=== PATIENT | female | born 1960 | race Caucasian/White ===

== ENCOUNTER 2023-11-11 14:08 | Emergency (ER) | payer BC, SELFPAY ==
[2023-11-11] VITALS (11 sets, daily range): BP systolic 156–201; BP diastolic 90–113; PULSE 63–74; RESP 10–18; TEMP 37.2; O2SAT 98–100
--- NOTE | ~2023-11-11 | CT_ITS ---
EXAMINATION: CT BRAIN W/O DATE: 11/11/2023 20:00 INDICATION: Headache. Hypertension. TECHNIQUE: Computed tomography (CT) of the head was performed without intravenous contrast. The dose- length product was 605.33 mGy-cm. Automated exposure control and iterative reconstruction technique w ere employed. COMPARISON: No prior studies for comparison. FINDINGS: Normal brain parenchymal volume for age. Normal barros-white differentiation. No acute intrac ranial hemorrhage, infarction, mass or mass effect. No ventriculomegaly or midline shift. Midline sagittal images demonstrate a normal corpus callosum, c raniovertebral junction and sella turcica. Basilar cisterns are patent. Paranasal sinuses and mastoids are pneumatized. No depressed skull fractures. IMPRESSION: 1. No acute intracranial abnormality. Reviewed, dictated and finalized at location A.
--- NOTE | ~2023-11-11 | XR_ITS ---
EXAMINATION: XR chest 2V DATE: 11/11/2023 14:44 INDICATION: Hypertension and chest pain TECHNIQUE: PA and lateral views of the chest were obtained. COMPARISON: None FINDINGS: The lungs are clear with no focal airspace opacities, pulmonary edema, pleural effusion or pneumothor ax. The cardiomediastinal silhouette is normal. Visualized bones and soft tissues are unremarkable. IMPRESSION: 1. No acute cardiopulmonary disease. Reviewed, dictated and finalized at location B.
--- NOTE | 2023-11-11 14:20 | ECG_ITS ---
Measurements Intervals [place] Rate: 67 P: 52 IN: 137 QRS: 15 QRSD: 71 T: 0 QT: 425 QTc: 451 Interpretive Statements SINUS RHYTHM POSSIBLE LEFT ATRIAL ENLARGEMENT CONSIDER INFERIOR INFARCT, AGE INDETERMINATE BORDERLINE ST ABNORMALITY- ANTEROLATERAL LEADS BASELINE WANDER- I, II, AVR, AVL, AVF, V1-V6 ABNORMAL ECG NO PREVIOUS ECG AVAILABLE FOR COMPARISON Electronically Signed On 11-11-2023 14:36:43 CDT by Juan Carlos Jacques D.O.
--- NOTE | 2023-11-11 14:35 | ED.RECABL ---
HPI - Recheck/Abnormal Lab/Rx General Chief Complaint: Recheck/Abnormal Lab/Rx Stated Complaint: htn Time Seen by Provider: 11/11/23 14:12 Source: patient Mode of arrival: ambulatory Limitations: no limitations History of Present Illness HPI narrative: This is a 63 year old female that presents to the ER for elevated blood pressure reading. Reports today she was feeling not right . Reports indigestion, as well as an episode of nausea and vomiting. Also reports left sided mid back pain, worse with breathing. She has been sick with a viral illness. She has been taking Sudafed. She took her blood pressure and it was elevated to 160s systolic. She called her PCP and was told to come to the ER. Denies shortness of breath, abdominal pain or lower extremity edema. Related Data Allergies Allergy/AdvReac Type Severity Reaction Status Date / Time No Known Allergies Allergy Unknown Unverified 10/17/16 08:13 Review of Systems Review of Systems: CONSTITUTIONAL: Denies fever, CARDIOVASCULAR: Reports chest pain. Denies edema. RESPIRATORY: Reports cough. Denies dyspnea GASTROINTESTINAL: Reports nausea, vomiting All systems reviewed & are unremarkable except as noted in HPI and below PMFSH Past Medical History Medical History (Updated 11/11/23 @ 18:34 by Ange Bender PA-C) History of gastroesophageal reflux (GERD) History of hypertension Family History Family History (Updated 09/05/15 @ 16:37 by DOCTOR UNKNOWN) Other Hypertension Social History Social History Smoking status: Never smoker Alcohol intake: current Exam Narrative: GENERAL: Well-appearing, well-nourished, and in no acute distress. HEAD: Normocephalic, atraumatic. EYES: EOMI. ENT: Nares clear, no rhinorrhea or epistaxis. Mucous membranes moist. Oropharynx without tonsillar hypertrophy exudate or other lesions. NECK: Supple. No adenopathy or masses. No JVD CHEST: Clear to auscultation. No respiratory distress. No wheezes rales or rhonchi HEART: Regular rate and rhythm. No murmur heard. Normal peripheral pulses. ABDOMEN: Soft, nontender, nondistended, normal active bowel sounds. EXTREMITIES: Normal range of motion. No edema. SKIN: Warm, dry, no rash. NEURO: No focal deficits. Alert and oriented x3. PSYCH: Normal mood and affect Course Course Emergency Course: Patient updated on workup and agrees with plan of care Vital Signs Vital signs: Vital Signs Temperature 98.9 F 11/11/23 14:13 Pulse Rate 73 11/11/23 14:13 Respiratory Rate 18 11/11/23 14:13 Blood Pressure 201/106 H 11/11/23 14:13 Pulse Oximetry 100 11/11/23 14:13 Oxygen Delivery Room Air 11/11/23 14:13 Temperature 98.9 F 11/11/23 14:13 Pulse Rate 69 11/11/23 16:01 Respiratory Rate 11 L 11/11/23 16:01 Blood Pressure 163/103 H 11/11/23 17:01 Pulse Oximetry 98 11/11/23 17:01 Oxygen Delivery Room Air 11/11/23 14:13 MDM - Recheck/Abnormal Lab/Rx MDM Narrative Medical decision making narrative: Patient presents to the emergency department for elevated blood pressure adult. Reports today she is feeling generally unwell. Reports she has been having some trouble with reflux. She was also reporting some left-sided pleuritic back pain. She is afebrile and nontoxic appearing. Blood pressure elevated on arrival to 200 systolic. This down trended without intervention. Most recent blood pressure 168/100. She is neurologically intact. CBC without concerning findings. Metabolic panel without concerning changes. Lipase is normal. EKG without acute ST changes and her baseline and 3 hour troponin are negative. Chest x-ray without acute cardiopulmonary abnormality. D-dimer is not elevated. Patient was updated on her workup. I attempted to reach her PCP, but was unable to. She was instructed to have close follow-up with her primary doctor for further management of her blood pressure. She was given warnings to return to the ER Differential D
[2023-11-11 14:37] LABS: Basophils Percent Auto 0.5 % (0.2-1.2); Eosinophils Percent Auto 0.1 % (0-4.4); Hematocrit 40.7 % (37.0-47.0); Hemoglobin 13.9 g/dL (12.0-15.0); Immature Granulocyte Absolute 0.03 K/mm3 (0.00-0.031); Immature Granulocyte Percent A 0.4 % (0-0.5); Lymphocytes Absolute Auto 1.87 K/mm3 (0.9-3.2); Mean Corpuscular HGB Conc 34.2 g/dl (32-36); Mean Corpuscular Hemoglobin 30.8 pg (26-34); Mean Corpuscular Volume 90.2 fl (80-100); Mean Platelet Volume 8.7 fl (7.4-10.4); Monocytes Absolute Auto 0.5 K/mm3 (0.1-0.6); Monocytes Percent Auto 6.1 % (2.6-8.5); Neutrophils Absolute Auto 5.1 K/mm3 (1.3-6.7); Neutrophils Percent Auto 67.9 % (45.5-73.1); Platelet Count Result 315 k/mm3 (150-375); Red Blood Count 4.51 M/mm3 (4.2-5.4); Red Cell Distribution Width 12.5 % (11.5-14.5); White Blood Count 7.5 K/mm3 (4.5-10.0)
[2023-11-11] MEDS: FAMOTIDINE 20 MG/2 ML VIAL IV PUSH (14:45)
[2023-11-11] MEDS: ONDANSETRON INJ 4 MG/2 ML VIAL IV PUSH (14:45)
[2023-11-11 14:47] LABS: Alanine Aminotransferase 26 U/L (6-35); Albumin Level 4.6 g/dL (3.5-5.1); Alkaline Phosphatase 115 U/L (38-126); Anion Gap 6 mmol/L (8-16); Aspartate Amino Transferase 41 U/L (14-36); Blood Urea Nitrogen 15 mg/dL (7-17); Calcium 9.6 mg/dL (8.4-10.2); Carbon Dioxide 31 mmol/L (22-30); Chloride 97 mmol/L (98-107); Estimated CRCL calculation 79 ml/min; Estimated Glomerular Filt Rate > 60; Glucose 109 mg/dL (65-110); Potassium 4.3 mmol/L (3.4-5.0); Sodium 134 mmol/L (137-145)
[2023-11-11 14:49] LABS: Partial Thromboplastin Time 26.6 Seconds (22.3-36.8); Prothrombin Time 13.5 Seconds (11.1-14.7)
[2023-11-11 14:52] LABS: D Dimer 0.41 ug/mL (<0.48)
[2023-11-11 14:58] LABS: Troponin I < 0.012 ng/mL (0.000-0.034)
[2023-11-11 15:01] LABS: Lipase 103 U/L (23-300)
--- NOTE | 2023-11-11 17:24 | ECG_ITS ---
Measurements Intervals [place] Rate: 67 P: 53 WI: 144 QRS: 19 QRSD: 80 T: 15 QT: 427 QTc: 454 Interpretive Statements SINUS RHYTHM POSSIBLE LEFT ATRIAL ENLARGEMENT EARLY PRECORDIAL R/S TRANSITION CONSIDER INFERIOR INFARCT, AGE INDETERMINATE NONSPECIFIC ST ABNORMALITY- ANTEROLAT/HIGH LAT LEADS BORDERLINE ECG COMPARED TO ECG 11/11/2023 14:26:10 NO SIGNIFICANT CHANGES Electronically Signed On 11-11-2023 19:49:36 CDT by Juan Carlos Jacques D.O.
[2023-11-11 18:04] LABS: Troponin I < 0.012 ng/mL (0.000-0.034)
[2023-11-11 19:56] LABS: Influenza A QL RT-PCR Negative (Negative); Influenza B QL RT-PCR Negative (Negative); SARS-CoV-2 RNA PCR Negative (Negative)
== END 2023-11-11 21:13 | disposition home or self-care (01) ==
PROVIDERS: Physician Assistant; Emergency Provider Emergency Medicine
DX: I10 Essential (primary) hypertension (principal); K21.9 Gastro-esophageal reflux disease without esophagitis; R94.31 Abnormal electrocardiogram [ECG] [EKG]
CPT/HCPCS: 36415; 70450; 71046; 80053; 83690; 84484; 85025; 85380; 85610; 85730; 87636; 93005; 96374; 96375; 99284; J2405

== ENCOUNTER 2025-04-21 10:54 | Emergency (ER) | payer BC, SELFPAY ==
--- NOTE | ~2025-04-21 | XR_ITS ---
EXAMINATION: XR chest 2V 04/21/2025 11:47 INDICATION: Cough congestion for 2 weeks. TECHNIQUE:Frontal and lateral images of the chest were obtained. COMPARISON: 11/11/2023 FINDINGS: The lungs are clear. The cardiomediastinal silhouette is within normal limits. There are no pleural effusions. There is no pneumothorax suspected. IMPRESSION: 1: NO ACUTE CARDIOPULMONARY DISEASE. Reviewed, dictated and finalized at location Q.
[2025-04-21 11:01] VITALS: BP 128/84; PULSE 88; RESP 18; TEMP 36.2; O2SAT 99
--- NOTE | 2025-04-21 11:02 | ED_ITS ---
HPI - URI/Sore Throat General Chief Complaint: Upper Respiratory Infection Stated Complaint: Congestion/Bodyaches/Fever Time Seen by Provider: 04/21/25 11:06 Source: patient Mode of arrival: ambulatory Limitations: no limitations History of Present Illness HPI Narrative: 64 y/o female presented for c/o cough, chest congestion, nasal congestion, and fatigue. Onset 2 weeks. Says symptoms worsened yesterday. Endorses occasional wheezing and sob with exertion. Denies n/v/d/f/c. Related Data Home Medications ?Medication ?Instructions ?Recorded ?Confirmed ?Last Taken ?Type fluoxetine 20 mg capsule mg 04/21/25 Unknown History omeprazole 40 mg capsule,delayed mg 04/21/25 Unknown History release Allergies Allergy/AdvReac Type Severity Reaction Status Date / Time No Known Allergies Allergy Unknown Unverified 10/17/16 08:13 Review of Systems Review of Systems: CONSTITUTIONAL: Denies body aches, fever, chills, or sweats. EYES: Denies visual changes, redness, or discharge. ENT: reports rhinorrhea, congestion, sore throat, otalgia. CARDIOVASCULAR: Denies chest pain, palpitations, or edema. RESPIRATORY: Reports cough, sob, wheezing. GASTROINTESTINAL: Denies abdominal pain, nausea, vomiting, or diarrhea. SKIN: Denies rash MUSCULOSKELETAL: Denies back pain, joint pain, or myalgia. NEUROLOGIC: Denies headache, numbness, tingling, or weakness. PSYCH: Denies depression or anxiety. All systems reviewed & are unremarkable except as noted in HPI and below PMFSH Past Medical History Medical History (Updated 04/21/25 @ 11:56 by Laura Barron, DIANA) History of gastroesophageal reflux (GERD) History of hypertension Family History Family History (Updated 09/05/15 @ 16:37 by DOCTOR UNKNOWN) Other Hypertension Social History Social History Smoking status: Never smoker Alcohol intake: current Comments At time of signature, I have reviewed and agree with nursing past medical, surgical, social and family history unless otherwise noted. Please see nursing chart for further information. There is no relevant family history pertinent to the presenting complaint Exam Narrative: GENERAL: mildly ill-appearing, in no acute distress. EYES: EOMI. No redness or drainage. Conjunctivae normal. ENT: Mucous membranes pink and moist. congestion and rhinorrhea. TMs normal bilaterally. Throat normal, hoarse voice. Uvula midline. NECK: Normal AROM. Supple. CHEST: Wheezing to all reeves. Frequent cough. No respiratory distress; speaks full sentences. HEART: Regular rate and rhythm. No murmur appreciated. ABDOMEN: Soft, nontender, nondistended, normal active bowel sounds. SKIN: Warm, dry, no rash. Capillary refill normal. Normal skin turgor. NEURO: Alert and oriented x3. Gait steady. PSYCH: Normal affect. Course Course Emergency Course: Patient is aware of diagnosis, understands and agrees to treatment plan. Anticipatory guidance given. Patient agrees to follow-up as directed and is aware of reasons to seek care at the emergency department. Portions of this record may have been created with voice recognition software Level of Care: Express Care Visit Vital Signs Vital signs: Vital Signs Temperature 97.2 F L 04/21/25 11:01 Pulse Rate 88 04/21/25 11:01 Respiratory Rate 18 04/21/25 11:01 Blood Pressure 128/84 04/21/25 11:01 Pulse Oximetry 99 04/21/25 11:01 Oxygen Delivery Room Air 04/21/25 11:01 Temperature 97.2 F L 04/21/25 11:01 Pulse Rate 88 04/21/25 11:01 Respiratory Rate 18 04/21/25 11:01 Blood Pressure 128/84 04/21/25 11:01 Pulse Oximetry 99 04/21/25 11:01 Oxygen Delivery Room Air 04/21/25 11:01 MDM - URI/Sore Throat MDM Narrative Medical decision making narrative: Discussed physical exam findings; pt presented with wheezing and coarse lung sounds, cough, and congestion. O2 sat 99% RA. Reassessed after duoneb, lungs significantly improved on auscultation and decreased frequency of cough is noted however pt says she does not feel different. CXR negative; reviewed with pt. Reviewed RX. Advised supportive measures and signs/symptoms to go to the ER. Pt is appropriate for outpt treatment and f/u with pcp.. Differential Diagnosis Differential diagnosis: Likely upper respiratory infection, sinusitis, viral infection, bronchitis, pharyngitis and other (Angioedema, perforation, asthma, pneumonia, PE, tension pneumothorax, cardiac tamponade [place], pericarditis, pleural effusion, CHF, bronchitis, cardiac arrhythmia) Imaging Data Radiologist's impression: Patient: Genna Pagan : 1960 MR#: [id number] Age: 64 Acct:[id number] Loc: [id number] ADM Date: 04/21/25Attending Dr: EXAMINATION: XR chest 2V 04/21/2025 11:47 INDICATION: Cough congestion for 2 weeks. TECHNIQUE:Frontal and lateral images of the chest were obtained. COMPARISON: 11/11/2023 FINDINGS: The lungs are clear. The cardiomediastinal silhouette is within normal limits. There are no pleural effusions. There is no pneumothorax suspected. IMPRESSION: 1: NO ACUTE CARDIOPULMONARY DISEASE. Discharge Plan Discharge Clinical Impression: Bronchitis, Sinusitis Patient Disposition: Home Condition: Stable Instructions: Antibiotic Form, Sinusitis (ED), Acute Bronchitis (ED) Additional Instructions: Take medication as directed Recommend Flonase spray and Zyrtec (or Claritin/Daily) over the counter Cough syrup may cause drowsiness; avoid driving or take it at night time. Tylenol every 8 hours as needed for pain Symptomatic treatment includes: rest, fluids, and increase humidity of the air at home. Follow up with your primary care provider as needed in 1 week Go to the ER for worsening symptoms or concerns Patient Language: Ukrainian Prescriptions: New benzonatate 200 mg capsule 200 mg PO TID PRN (Reason: cough) Qty: 20 0RF methylprednisolone [Medrol (Nagi)] 4 mg tablets,dose pack See Rx Instructions .ROUTE .COMPLEX Qty: 21 0RF Rx Instructions: orally per package directions amoxicillin-pot clavulanate 875-125 mg tablet 1 tablet PO Q12H 7 Days Qty: 14 0RF No Action omeprazole 40 mg capsule,delayed release(DR/EC) fluoxetine 20 mg capsule Follow-up/Referrals: PHYSICIAN,[employer] [Primary Care Provider, Internal Medicine]
[2025-04-21] MEDS: IPRATROPIUM 0.5 MG/ALBUTEROL SULFATE 2.5 MG AMPUL.NEB 3 ML INHALATION (11:16)
== END 2025-04-21 12:07 | disposition home or self-care (01) ==
PROVIDERS: Emergency Provider Nurse Practitioner Family
DX: J40 Bronchitis, not specified as acute or chronic (principal); J32.9 Chronic sinusitis, unspecified; I10 Essential (primary) hypertension; K21.9 Gastro-esophageal reflux disease without esophagitis
CPT/HCPCS: 71046; 94640; 99213; G0463

== ENCOUNTER 2025-05-11 10:46 | Emergency (ER) | payer MEDICARE, SELFPAY ==
[2025-05-11 11:09] VITALS: BP 147/104; PULSE 98; RESP 16; TEMP 36.1; O2SAT 100
--- NOTE | 2025-05-11 11:17 | ED_ITS ---
HPI - URI/Sore Throat General Chief Complaint: Upper Respiratory Infection Stated Complaint: COUGH Time Seen by Provider: 05/11/25 10:51 Source: patient Mode of arrival: ambulatory Limitations: no limitations History of Present Illness HPI Narrative: Santo is a 65-year-old female patient presenting to the clinic today with complaints of productive cough with green/yellow phlegm, nasal congestion, sinus congestion, postnasal drip, and chest congestion for over 5 weeks. She was seen on April 21 and was diagnosed with sinusitis/bronchitis. She was given prescriptions for Tessalon Perles, Medrol Dosepak, and Augmentin. States she had this completed those medications but did not feel any improvement of her symptoms. Denies any shortness of breath or chest pain. Denies any fevers, chills, body aches. Related Data Home Medications ?Medication ?Instructions ?Recorded ?Confirmed ?Last Taken ?Type fluoxetine 20 mg capsule mg 04/21/25 Unknown History omeprazole 40 mg capsule,delayed mg 04/21/25 Unknown History release Allergies Allergy/AdvReac Type Severity Reaction Status Date / Time No Known Allergies Allergy Unknown Verified 05/11/25 11:11 Review of Systems Review of Systems: Pertinent positives per HPI. Patient denies any fever, chills, rash, headache, visual changes, dizziness, shortness of breath, chest pain, palpitations, nausea, vomiting, diarrhea, constipation, abdominal pain, or any urinary issues. [facility] Past Medical History Medical History (Updated 05/11/25 @ 12:16 by Hugo Black APRN) History of gastroesophageal reflux (GERD) History of hypertension Family History Family History (Updated 09/05/15 @ 16:37 by DOCTOR UNKNOWN) Other Hypertension Social History Social History Smoking status: Never smoker Alcohol intake: current Comments At the time of my signature, I reviewed and agree with the nursing past medical, surgical, social, and family history. There is no relevant family history pertinent to the patient complaint. Exam Narrative: General: Well-developed, well nourished, in no apparent distress Head: Normocephalic, atraumatic Eyes: Pupils equally round and reactive to light bilaterally, EOM intact, sclera and conjunctive clear, no discharge, lids normal Ears: TMs intact and congested, ear canals clear, no drainage, grossly hearing normal. Nose: Nares patent, yellow nasal discharge, moderate anterior nasal inflammation, maxillary sinus tenderness. Mouth: Oral pharynx red without lesions or masses, good dentition, MMM. Postnasal drip Neck: Supple, trachea midline, no enlargement of anterior or posterior cervical nodes, no thyroid masses or goiter palpable. Cardio: Regular rate and rhythm, s1 and s2 normal, no murmur appreciated. Resp: Clear to auscultation bilaterally, no rhonchi, rales, wheezing or rubs Course Course Emergency Course: Portions of this record may have been created with voice recognition software. Level of Care: Express Care Visit Vital Signs Vital signs: Vital Signs Temperature 36.1 C L 05/11/25 11:09 Pulse Rate 98 05/11/25 11:09 Respiratory Rate 16 05/11/25 11:09 Blood Pressure 147/104 H 05/11/25 11:09 Pulse Oximetry 100 05/11/25 11:09 Temperature 36.1 C L 05/11/25 11:09 Pulse Rate 98 05/11/25 11:09 Respiratory Rate 16 05/11/25 11:09 Blood Pressure 147/104 H 05/11/25 11:09 Pulse Oximetry 100 05/11/25 11:09 Oxygen Delivery Room Air 05/11/25 11:12 Vital signs reviewed MDM - URI/Sore Throat MDM Narrative Medical decision making narrative: At the time of visit patient is resting comfortably on the exam table. Patient appears to be nontoxic. complaints of productive cough with green/yellow phlegm, nasal congestion, sinus congestion, postnasal drip, and chest congestion for over 5 weeks. She was seen on April 21 and was diagnosed with sinusitis/bronchitis. She was given prescriptions for Tessalon Perles, Medrol Dosepak, and Augmentin. States she had this completed those medications but did not feel any improvement of her symptoms. She feels as though she is wheezing at times. Currently denies any shortness of breath or chest pain. Denies any fevers, chills, body aches. On exam patient has bilateral ear congestion, oral pharynx red with postnasal drip, moderate swelling of the anterior nasal turbinates, and maxillary sinus pressure. Plan: I suspect patient has sinusitis. Prescription for doxycycline, albuterol inhaler, Tessalon Perles, and 10 day taper dose prednisone was sent to the pharmacy. Supportive measures were discussed with the patient and they voiced understanding discharge instructions and agrees to treatment plan. Return precautions reviewed Differential Diagnosis Differential diagnosis: Likely upper respiratory infection, otitis media, sinusitis, viral infection, bronchitis, influenza, pharyngitis and other (COVID, pneumonia) Discharge Plan Discharge Clinical Impression: Sinusitis Qualifiers: Sinusitis location: maxillary Chronicity: acute Recurrence: non-recurrent Qualified Code(s): J01.00 - Acute maxillary sinusitis, unspecified Patient Disposition: Home Condition: Stable Instructions: Antibiotic Form, Sinusitis (ED) Additional Instructions: Take prescription medications only as prescribed-prednisone, Tessalon Perles, albuterol inhaler, and doxycycline Increase fluids and stay well hydrated May take Tylenol or motrin as directed on bottle for pain/fever May use Flonase 1 spray in each nare daily May take OTC antihistamines such as Zyrtec or Claritin daily as directed on bottle May apply Vicks vapor rub to chest to open sinuses Sinus rinses for congestion Cepacol spray, cough drops, throat lozenges, warm tea with honey/lemon, gargle salt water to soothe throat BRAT diet for diarrhea Clear liquids x 24 hours then advance as tolerated for nausea/vomiting Go to the ED if you develop a worsening in your condition- high fever not controlled by Tylenol or Motrin, dehydration, weakness, lethargy, shortness of breath, or chest pain. Follow up with your PCP in 3-5 days if symptoms persist. Patient Language: Iranian Prescriptions: New prednisone 10 mg tablet 10 mg PO DAILY Qty: 30 0RF Rx Instructions: 60mg po daily on day 1, 40mg po daily on days 2-4, 30mg po daily on days 5-6, 20mg po daily on days 7-8, 10mg po daily on days 9-10 doxycycline hyclate 100 mg capsule 100 mg PO BID 7 Days Qty: 14 0RF benzonatate 200 mg capsule 200 mg PO TID 7 Days Qty: 21 0RF albuterol sulfate 90 mcg/actuation HFA aerosol inhaler 2 puff inhalation Q4-6H PRN (Reason: shortness of breath or wheezing) 30 Days Qty: 8.5 0RF No Action omeprazole 40 mg capsule,delayed release(DR/EC) fluoxetine 20 mg capsule benzonatate 200 mg capsule 200 mg PO TID PRN (Reason: cough) Qty: 20 0RF methylprednisolone [Medrol (Nagi)] 4 mg tablets,dose pack See Rx Instructions .ROUTE .COMPLEX Qty: 21 0RF Rx Instructions: orally per package directions amoxicillin-pot clavulanate 875-125 mg tablet 1 tablet PO Q12H 7 Days Qty: 14 0RF Follow-up/Referrals: UNKNOWN,DOCTOR [Primary Care Provider] Time of Disposition: 11:17 Quality NIHSS Nursing Documentation ED NIHSS nursing documentation: reviewed/agree
== END 2025-05-11 11:23 | disposition home or self-care (01) ==
PROVIDERS: Emergency Provider Nurse Practitioner Family
DX: J01.00 Acute maxillary sinusitis, unspecified (principal); I10 Essential (primary) hypertension; K21.9 Gastro-esophageal reflux disease without esophagitis
CPT/HCPCS: 99213; G0463